=== PATIENT | female | born 2000 | race Caucasian/White ===

== ENCOUNTER 2019-01-25 23:57 | Inpatient (IN) | payer OTHER ==
[~2019-01-25] VITALS: Ht 160 cm; Wt 93.0 kg
[~2019-01-25 23:57] MED LIST: AMOXICILLI400 MG/5 M PO; CORTISPORIN OTI10 M2 OT; NOHOMEMEDICATIONS; VENTOLIN HFA 1818 GM INH
[2019-01-26 00:08] VITALS: BP 150/74
[2019-01-26 00:27] LABS: ABSOLUTE LYMPHOCYTES 2.4 thou/uL (0.8-5.3); ABSOLUTE MONOCYTES 0.7 thou/uL (0.0-1.2); ABSOLUTE NEUTROPHILS 5.6 thou/uL (1.6-8.1); BASOPHILS 0.4 %; EOSINOPHILS 0.2 %; HEMATOCRIT 42.3 % (37.0-47.0); HEMOGLOBIN 14.3 gm/dL (12.0-15.0); LYMPHOCYTES 27.7 %; MCH 28.8 pg (26.0-34.0); MCHC 33.7 g/dL (28.0-37.0); MCV 85.5 fL (80.0-100.0); MONOCYTES 7.6 %; MPV 8.8 fl. (7.2-11.1); NUCLEATED RBCS 0 /100WBC; PLATELET COUNT* 339 thou/uL (150-400); POLYS 64.1 %; RBC 4.95 mil/uL (4.20-5.00); RDW-CV 14.1 % (10.5-14.5); WBC 8.7 thou/uL (4.0-11.0)
[2019-01-26 00:32] LABS: URINE BILIRUBIN NEGATIVE (Negative); URINE BLOOD 1+ (Negative); URINE CLARITY CLEAR; URINE GLUCOSE-RANDOM NEGATIVE (Negative); URINE KETONES TRACE (Negative); URINE LEUKOCYTES-REFLEX TRACE (Negative); URINE NITRITE-REFLEX NEGATIVE (Negative); URINE PROTEIN NEGATIVE (Negative); URINE SPECIFIC GRAVITY >= 1.030 (1.005-1.030); URINE UROBILINOGEN 0.2 E.U./dl (0.2-1.0)
[2019-01-26 00:38] LABS: ACETAMINOPHEN < 2 ug/mL (10-30); ALCOHOL < 10 mg/dL (<10); SALICYLATE < 2.8 mg/dL (2.8-20.0)
[2019-01-26 00:40] LABS: AMP/METHAMP Negative (Negative); BARBITURATES Negative (Negative); BENZODIAZEPINES Negative (Negative); COCAINE Negative (Negative); METHADONE Negative (Negative); PCP Negative (Negative); THC Negative (Negative)
[2019-01-26 00:46] LABS: ALBUMIN 4.1 g/dL (3.4-5.0); ALKALINE PHOSPHATASE 59 U/L (46-116); ANION GAP 13 mmol/L (7-16); BUN 13 mg/dL (7-18); CALCIUM 9.8 mg/dL (8.5-10.1); CHLORIDE 103 mmol/L (98-107); CO2 24 mmol/L (21-32); CREATININE 0.8 mg/dL (0.6-1.3); GLUCOSE 114 mg/dL (70-99); POTASSIUM 3.5 mmol/L (3.5-5.1); SGOT 20 U/L (15-37); SGPT 39 U/L (30-65); SODIUM 140 mmol/L (136-145); TOTAL BILIRUBIN 0.3 mg/dL (<0.1-1.0); TOTAL PROTEIN 7.8 g/dL (6.4-8.2); TROPONIN-I LEVEL <0.06 ng/mL (<0.06)
[2019-01-26 00:50] LABS: OPIATES Negative (Negative)
[2019-01-26 00:55] LABS: CASTS None Seen /LPF (None Seen); SQUAMOUS >10 Many /LPF (0-3); URINE COLOR YELLOWS
[2019-01-26 00:56] LABS: URINE RBC 3-10 Few /HPF (0-2); URINE WBC-REFLEX 6-15 Few /HPF (0-5)
[2019-01-26 00:57] LABS: CRYSTALS None Seen /LPF (None Seen)
[2019-01-26 05:40] VITALS: BP 117/61
[2019-01-26] MEDS ORDERED: VENTOLIN HFA 1818 GM INH (09:30)
[2019-01-26 09:43] VITALS: BP 113/67
--- NOTE | 2019-01-26 10:41 | EKG ---
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: NILS : 2000 Requested By: Juana Thomson Order Number: [id number] MD: Dereck Crowder Measurements Intervals Burns Rate: 87 P: 57 KS: 145 QRS: 34 QRSD: 91 T: 29 QT: 358 QTc: 431 Interpretive Statements Sinus rhythm Probable left atrial enlargement No previous ECG available for comparison Electronically Signed On 01-26-2019 10:41:24 CDT by Dereck Crowder [email or web address] <ELECTRONICALLY SIGNED> By: Dereck Crowder MD, [facility] 01/26/19 1041 Dereck Crowder MD, [facility] /EPI
[2019-01-26 20:00] VITALS: BP 110/68
[2019-01-27 04:30] VITALS: BP 111/70
[2019-01-27 05:20] LABS: ABSOLUTE LYMPHOCYTES 2.6 thou/uL (0.8-5.3); ABSOLUTE MONOCYTES 0.5 thou/uL (0.0-1.2); ABSOLUTE NEUTROPHILS 2.8 thou/uL (1.6-8.1); BASOPHILS 0.4 %; EOSINOPHILS 0.7 %; HEMATOCRIT 37.3 % (37.0-47.0); HEMOGLOBIN 12.4 gm/dL (12.0-15.0); LYMPHOCYTES 43.7 %; MCH 28.6 pg (26.0-34.0); MCHC 33.4 g/dL (28.0-37.0); MCV 85.7 fL (80.0-100.0); MONOCYTES 8.5 %; MPV 9.1 fl. (7.2-11.1); NUCLEATED RBCS 0 /100WBC; PLATELET COUNT* 282 thou/uL (150-400); POLYS 46.7 %; RBC 4.35 mil/uL (4.20-5.00); RDW-CV 14.1 % (10.5-14.5)
[2019-01-27 05:43] LABS: ALBUMIN 3.1 g/dL (3.4-5.0); CALCIUM 8.5 mg/dL (8.5-10.1); CREATININE 0.8 mg/dL (0.6-1.3); MAGNESIUM 1.9 mg/dL (1.8-2.4); TOTAL BILIRUBIN 0.5 mg/dL (<0.1-1.0); TOTAL PROTEIN 6.1 g/dL (6.4-8.2)
[2019-01-27 07:55] VITALS: BP 112/59
[2019-01-27] MEDS ORDERED: BACTRIM DS TAB1 EACH PO (11:19)
[2019-01-27 12:42] VITALS: BP 107/57
== END 2019-01-27 14:05 | DRG 918 ==
LOC: M.ERS 23:57 → M.TBA-ER 01-26 01:56 → M.3W 01-26 01:56 → M.ICU 01-26 05:02 → M.3W 01-26 14:20
PROVIDERS: Emergency Medicine; Family Medicine; ADMIT Internal Medicine
DX: T43.222A Poisoning by selective serotonin reuptake inhibitors, intentional self-harm, initial encounter (principal); N39.0 Urinary tract infection, site not specified; J45.20 Mild intermittent asthma, uncomplicated; E83.42 Hypomagnesemia; Z79.51 Long term (current) use of inhaled steroids

== ENCOUNTER 2019-10-25 16:14 | Emergency (ER) | payer OTHER ==
[~2019-10-25] VITALS: Ht 162.6 cm; Wt 98.4 kg
[~2019-10-25 16:14] MED LIST changes: +BACTRIM DS TAB1 EACH PO
[2019-10-25 16:47] LABS: INFLUENZA A ANTIGEN Negative (Negative); INFLUENZA B ANTIGEN Negative (Negative)
[2019-10-25] MEDS ORDERED: ZPAK PO (17:17)
[2019-10-25] MEDS ORDERED: VENTOLIN HFA 1818 GM INH (17:17)
[2019-10-25] MEDS ORDERED: MEDROLDOSEPACK PO (17:17)
[2019-10-25] MEDS ORDERED: TESSALON PERLE100 MG PO (17:17)
[2019-10-25] MEDS ORDERED: ONDANSETRON HCL4 M2 PO (17:26)
[2019-10-25 17:30] VITALS: BP 140/75
== END 2019-10-25 17:30 | disposition home or self-care (01) ==
LOC: M.ERS 16:14
PROVIDERS: Nurse Practitioner Family
DX: J20.9 Acute bronchitis, unspecified (principal); J45.909 Unspecified asthma, uncomplicated